=== PATIENT | female | born 1975 | race Caucasian/White ===

== ENCOUNTER 2025-04-30 11:19 | Outpatient (REF) | payer OTHER, MEDICAID, SELFPAY ==
--- NOTE | ~2025-04-30 | XR_ITS ---
EXAM: Cervical spine x-ray 3 view TECHNIQUE: AP, lateral, AP open-mouth odontoid INDICATION: Neck pain PRIOR: None FINDINGS: There is straightening of the cervical lordosis. There is no prevertebral soft tissue swelling. C3-4 degenerative subtle retrolisthesis. C6-7 demonstrates subtle disc space narrowing and ossification of the anterior disc annulus with adjacent small osteophytes. No fracture is evident. XR/XR cervical spine 3V IMPRESSION: There is straightening of the expected cervical lordosis. This can be idiopathic, but can also be related to degenerative change, muscle spasm, or posterior soft tissue injury. Electronically signed by: Percy Blanton MD 04/30/2025 12:00 PM EDT
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
--- OUTSIDE RECORDS SUMMARY | 2025-04-30 12:30 | XMS_ITS | Encounter Summary ---
Author Organization [employer] Address [address] [facility] [address] [place] [address] Care Team Providers Care Senior Operator Name Role Phone Heath Carrillo SHIREEN Primary Care Provider [phone] Encounter Details Date Type Department Care Team (Latest Contact Info) Description 04/30/2025 Travel Social History Tobacco Use Types Packs/Day Years Used Date Smoking Tobacco: Never Passive Smoke Exposure: Never Smokeless Tobacco: Never Alcohol Use Standard Drinks/Week Comments Never 0 (1 standard drink = 0.6 oz pur e alcohol) Depression Answer Date Recorded Patient Health Questionnaire-9 Score 7 04/30/2025 Patient Health Questionnaire-9 Score 7 04/30/2025 Last PHQ-9: Questionnaire Data Not on file 1 Housing Stability Answer Date Recorded What is your housing situation today? I have evelyne niki 04/30/[address] you li [...] AM EDT documented as of this encounter Functional Status * Over the past 2 weeks, how often have you been bothered by any of the following problems? Question Answer Date of Assessment Author Patient Health Questionnaire -2 Score 3 04/30/2025 11:09 AM EDDestiny Galdamez MA * Little interest or pleasure in [...] Assessment Author Somewhat difficult 04/30/2025 11:09 AM Destiny Barker MA * Over the last 2 weeks, how often have you been bothered by any of the following problems? Question Answer Date of Assessment Author Feeling nervous, anxious, or on edge 3 04/30/2025 11:09 AM Destiny Murcia MA Not being able to stop or co ntrol worrying 3 04/30/2025 11:09 AM Destiny Murcia MA Worrying too much about diff erent things 3 04/30/2025 11:09 AM Destiny Murcia MA Trouble relaxing 3 04/30/2025 11:09 AM Destiny Murcia MA Being so restless that it is hard to sit still 2 04/30/2025 11:09 AM Destiny Murcia MA Becoming easily annoyed or irritable 1 04/30/2025 11:09 AM Destiny Murcia MA Feeling afraid as if somethi ng awful might happen 3 04/30/2025 11:09 AM Destiny Murcia MA KEVIN-7 Total Score 18 04/30/2025 11:09 AM Destiny Murcia MA documented as of this encounter Plan of Treatment Not on file documented as of this encounter Visit Diagnoses Not on filedocumented in this encounter Additional Health Concerns Assessment Noted Time PHQ-9 Depression Total Score: 7 04/30/20 25 11:09 AM EDT documented as of this encounter Care Teams Senior Operator Relationship Specialty Start Date End Date Heath Carrillo FNP [address] [place] [address] PCP - General Family Medicine 04/30/25 documented as of this encounter
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
--- OUTSIDE RECORDS SUMMARY | 2025-04-30 12:30 | XMS_ITS | Encounter Summary ---
Author Organization [employer] Address [address] [facility] [address] [place] [address] Care Team Providers Care Object Oriented Programmer Name Role Phone Unavailable Primary Care Provider Unavailabl e Reason for Visit * Reason Onset Date Comments Chart Prep 04/29/2025 Encounter Details Date Type Department Care Team (Late st Contact Info) Description 04/29/2025 Telephone [facility] [address] [place] [address] Heath Carrillo FNP [address] [place] [address] Chart Prep Social History Tobacco Use Types Packs/Day Years Used Date Smoking Tobacco: Never Assessed Depression Answer Date Recorded Patient Health Questionnaire-9 [...] not want or need it 09/2024 Comments Unknown Sex and Gender Information Value Date Recorded Sex Assigned at Female 04/14/2025 12:52 PM EDT Legal Sex Female 12:20 PM EDT Gender Identity Female 04/14/2025 12:52 PM EDT Sexual Orientation Straight 04/30/2025 9: 13 AM EDT documented as of this encounter Miscellaneous Notes * Telephone Encounter - Destiny Rosas MA - 04/29/2025 11:48 AM EDT Chart Prep Labs: not applicable Images: not applicable Referrals: not applicable Vaccines due: Covid, Flu, Hep B, and DTAP Screenings: colonoscopy, mammogram, and pap smearAlcohol/Substance Use Screening ( Overdue care gaps: SBIRT, SDOH, PHQ-9, KEVIN-7, Oral health screening, Disability screen, and Tobacco documented in this encounter Plan of Treatment Not on file documented as of this encounter Visit Diagnoses Not on filedocumented in this encounter
== END 2025-04-30 11:20 | disposition home or self-care (01) ==
LOC: HO.HHCX 11:19
DX: M54.9 Dorsalgia, unspecified (principal)
CPT/HCPCS: 72040; 72100

== ENCOUNTER → 2025-04-30 11:29 | Outpatient (BNV) | payer SELFPAY | PROVIDERS: Visit Provider Radiology Diagnostic Radiology | DX: M54.50 Low back pain, unspecified (principal); M54.2 Cervicalgia; V89.2XXA Person injured in unspecified motor-vehicle accident, traffic, initial encounter | CPT/HCPCS: 72040; 72100 ==